=== PATIENT | male | born 1955 | race Caucasian/White ===

== ENCOUNTER 2021-04-01 10:33 | Day surgery (SDC) | payer MEDICARE, OTHER ==
[2021-03-31 11:19] VITALS: BMI 26.2
[~2021-04-01 10:33] MED LIST: LACTATED RINGERS 1,000 ML IV SCH; LIDOCAINE 1% (10MG/ML) FOR IV START INTRADERMA PRN
[2021-04-01 11:41] VITALS: TEMP 97
[2021-04-01] MEDS ORDERED: PROPOFOL 10 MG/ML 20 ML VIAL IV ONE (12:36)
--- NOTE | 2021-04-01 13:00 | P.PCN ---
Date of Procedure: 04/01/21 Procedure(s) Performed: BRIEF HISTORY: Patient is a 65-year-old pleasant male scheduled for an elective colonoscopy as a part of screening for colorectal neoplasia. PROCEDURE PERFORMED: Colonoscopy. PREOPERATIVE DIAGNOSIS: Screening for colon cancer. IV sedation per Anesthesia. PROCEDURE: After informed consent was obtained, the patient, was brought into the endoscopy unit. IV sedation was administered by Anesthesia under continuous monitoring. Digital rectal examination was normal. Initially the Olympus CF-160 flexible video colonoscope was then inserted in the rectum, gradually advanced into the cecum without any difficulty. Careful examination was performed as the scope was gradually being withdrawn. Ileocecal valve and the appendiceal orifice were visualized and appeared normal. Prep was excellent. Mucosa of the cecum, ascending colon, transverse colon, descending colon, sigmoid colon, and rectum appeared normal. Retroflexion was performed in the rectum and no lesions were seen. The patient tolerated the procedure well. IMPRESSION: Normal-appearing colon from rectum to cecum with no evidence of colorectal neoplasia. RECOMMENDATIONS: Findings of this examination were discussed with the patient as well as a family. He was advised to have a repeat screening colonoscopy in 10 years.
[2021-04-01 13:07] VITALS: RESP 18
[2021-04-01 13:20] VITALS: BP 125/89; PULSE 80
== END 2021-04-01 13:54 | disposition home or self-care (01) ==
LOC: ORWHC2ENDO 10:33
PROVIDERS: ATTEND Internal Medicine Gastroenterology
DX: Z12.11 Encounter for screening for malignant neoplasm of colon (principal); I49.9 Cardiac arrhythmia, unspecified; E78.5 Hyperlipidemia, unspecified; I48.91 Unspecified atrial fibrillation; I10 Essential (primary) hypertension; Z79.01 Long term (current) use of anticoagulants
CPT/HCPCS: G0121; J2704

== ENCOUNTER → 2023-03-20 | Outpatient (CLI) | payer MEDICARE, OTHER ==
--- NOTE | 2023-03-20 13:11 | MR ---
EXAMINATION TYPE: MR brain wo/w con DATE OF EXAM: 03/20/2023 COMPARISON: None HISTORY: Loss of balance, dizziness TECHNIQUE: Multiplanar, multisequence images of the brain and brainstem is performed without and with IV contras t, utilizing 9 mL intravenous Gadavist . FINDINGS: Diffusion weighted images demonstrate no evidence of a recent infarct or other diffusion ab normality. There is no extra-axial fluid collection or significant white matter signal abnormality. The ventricular system and cisternal spaces are normal in size and appearance. The brain volume is age appropriate. Midline structures demonstrate normal morphology. The craniocervical junction appears within normal limits. Post contrast images demonstrate no abnormal enhancement. The dural venous sinuses appear pa tent. The visualized sinuses are clear and the globes are intact. IMPRESSION: No acute/subacute ischemia or abnormal enhancement to suggest intracranial mass.
== END | disposition home or self-care (01) ==
LOC: RADMRIMAIN 10:57
PROVIDERS: ATTEND Internal Medicine
DX: H93.13 Tinnitus, bilateral (principal); R42 Dizziness and giddiness; R26.81 Unsteadiness on feet
CPT/HCPCS: 70553; A9585

== ENCOUNTER → 2024-03-24 | Outpatient (CLI) | payer MEDICARE, OTHER ==
--- NOTE | 2024-04-22 18:37 | US ---
Site ID [facility] Patient Richmond Merlos ID [id number] Age/Gender: 68Y, O Order # N/A Procedure US scrotum with doppler Date 03/24/2024 7:25:00 AM EXAMINATION TYPE: US scrotum. Grayscale and color Doppler Duplex imaging performed of the scrotum. DATE OF EXAM: 03/30/2024 COMPARISON: NONE CLINICAL INDICATION: 68 year old with history of palpable lump left scrotum, tenderness for a few yea rs. EXAM MEASUREMENTS: TESTICLES: Right Testicle: 5.0 x 2.3 x 3.1 cm Left Testicle: 4.5 x 2.8 x 3.5 cm EPIDIDYMIS HEAD: Right Epididymis: 1.1 cm Left Epididymis: 1.2 cm -simple epididymal cyst measuring 0.9 x 0.9 cm. Doppler performed to assess for testicular vascularity; good bilateral color flow and waveforms are s een. There is no evidence of testicular torsion. Presence of hydroceles: No Presence of varicoceles: No IMPRESSION: No evidence of testicular torsion or mass. No ultrasound evidence accounting for patient' s symptomology.
--- NOTE | 2024-04-22 18:37 | US ---
Site ID [facility] Patient Richmond Merlos ID [id number] Age/Gender: 68Y, O Order # N/A Procedure US LIVER Date 03/24/2024 7:13:00 AM INDICATION: Patient age: [age] year old; Reason for study: Elevated LFTs. COMPARISON: None, please note PACS Production downtime occurred during the radiologist interpretation of these images with limited priors/reports.. TECHNIQUE: Multiple grayscale and color doppler ultrasound images of the right upper abdomen obtained utilizing transabdominal imaging. FINDINGS: PANCREAS: Limited evaluation of the pancreas secondary to bowel. LIVER: The liver demonstrates a normal echotexture. There is no evidence of dilated ducts, cystic structures , or solid mass. Measures 12.3 cm in greatest dimension. GALLBLADDER: The gallbladder is without evidence of wall thickening, pericholecystic fluid, or cholelithiasis. The common duct measures approximately 4 mm. Per workforce planner, the sonographic Choi's sign was negative . RIGHT KIDNEY: The right kidney measures 11.7 x 5.2 x 5.9 cm, without evidence of hydronephrosis, shadowing calculus , or contour deforming solid mass. Upper and lower pole simple cysts with largest measurable measurin g 2.0 x 1.8 x 1.6 cm. Renal parenchymal echogenicity is within normal limits. IMPRESSION: 1. No sonographic evidence for acute process. 2. Unremarkable appearance of the liver without focal lesion. 3. Simple right renal cysts.
== END | disposition home or self-care (01) ==
LOC: RADUSWWP 13:03
PROVIDERS: ATTEND Internal Medicine
DX: R74.01 Elevation of levels of liver transaminase levels (principal); N28.1 Cyst of kidney, acquired; N50.3 Cyst of epididymis
CPT/HCPCS: 76705; 76870; 93975